=== PATIENT | male | born 1955 | race Caucasian/White ===

== ENCOUNTER 2017-08-23 22:40 | Emergency (ER) | payer MEDICAID, OTHER ==
[~2017-08-23] VITALS: Ht 170.2 cm; Wt 82.0 kg
[~2017-08-23 22:40] MED LIST: ALBU90AE PO; ALFU10TA10 PO; ATOR20TA66 PO; BUDE10.2 INH; CALC355O3 PO; CLOP75TA33 PO; ISOS5TAB3 PO; LOSA25TA21 PO; LYR75C PO; METO-395 PO; NITR0.4T48 SL; OMEP20TA5 PO; SERT50TA10 PO; SPIIN INH; VALP250C3 PO
[2017-08-23] MEDS ORDERED: normal saline 1000ML IV soln IVB ONE (22:55)
[2017-08-23 23:10] LABS: BASOPHILS # (AUTO) 0.1 X10'3 (0-0.2); BASOPHILS % (AUTO) 1.2 % (0-1); EOSINOPHILS # (AUTO) 0.3 X10'3 (0-0.9); EOSINOPHILS % (AUTO) 4.2 % (0-6); HEMATOCRIT 41.5 % (42.0-52.0); HEMOGLOBIN 14.3 g/dl (14.0-17.9); LYMPHOCYTES # (AUTO) 2.3 X10'3 (1.1-4.8); MEAN CORPUSCULAR HEMOGLOBIN 32.5 PG (27.0-31.0); MEAN CORPUSCULAR HGB CONC 34.5 % (33.0-36.5); MEAN CORPUSCULAR VOLUME 94.1 FL (78-98); MEAN PLATELET VOLUME 6.9 FL (7.4-10.4); MONOCYTES # (AUTO) 0.4 X10'3 (0-0.9); MONOCYTES % (AUTO) 5.1 % (2-12); NEUTROPHILS # (AUTO) 4.8 X10'3 (1.8-7.7); NEUTROPHILS % (AUTO) 60.5 % (42-75); PLATELET COUNT 176 X10'3 (140-440); RED BLOOD COUNT 4.41 X10'6 (4.70-6.10); RED CELL DISTRIBUTION WIDTH 13.5 % (11.5-14.5); WHITE BLOOD COUNT 7.9 X10'3 (4.5-11.0)
[2017-08-23 23:19] LABS: INR 2.2 INR; PARTIAL THROMBOPLASTIN TIME 33 SECONDS (22-32); PROTHROMBIN TIME 22.1 SECONDS (9.0-12.0)
[2017-08-23 23:39] LABS: ALANINE AMINOTRANSFERASE 29 U/L (12-78); ALBUMIN 3.8 G/DL (3.4-5.0); ALBUMIN/GLOBULIN RATIO 1.2 (1.1-1.5); ALKALINE PHOSPHATASE 80 IU/L (46-116); ANION GAP 10 (8-16); ASPARTATE AMINO TRANSFERASE 27 U/L (10-37); BILIRUBIN,TOTAL 0.2 MG/DL (0.1-1.0); BLOOD UREA NITROGEN 21 MG/DL (7-18); BUN/CREATININE RATIO 14.8 (5.4-32.0); CALCIUM 8.8 MG/DL (8.5-10.1); CHLORIDE 106 MMOL/L (99-107); CREATINE KINASE 149 U/L (39-308); CREATININE 1.42 MG/DL (0.60-1.10); GLUCOSE 97 MG/DL (70-104); MAGNESIUM 2.1 MG/DL (1.5-2.4); POTASSIUM 4.2 MMOL/L (3.5-5.1); SODIUM 142 MMOL/L (135-145); TOTAL CARBON DIOXIDE 25.6 MMOL/L (24-32); eGFR 51 ML/MIN
[2017-08-23 23:40] LABS: ACETAMINOPHEN < 2.0 UG/ML (10-30)
[2017-08-23 23:58] VITALS: BP 112/64
== END 2017-08-24 00:05 | disposition home or self-care (01) ==
LOC: ER 22:40
DX: S00.03XA Contusion of scalp, initial encounter (principal); I25.10 Atherosclerotic heart disease of native coronary artery without angina pectoris; Z86.73 Personal history of transient ischemic attack (TIA), and cerebral infarction without residual deficits; Z95.0 Presence of cardiac pacemaker; Z95.1 Presence of aortocoronary bypass graft; Z79.899 Other long term (current) drug therapy; Y04.0XXA Assault by unarmed brawl or fight, initial encounter; Y93.89 Activity, other specified; Y92.89 Other specified places as the place of occurrence of the external cause; Y99.8 Other external cause status
CPT/HCPCS: 36415; 70450; 71045; 80053; 80329; 82140; 82550; 82948; 83735; 84484; 85025; 85610; 85730; 93005; 99285

== ENCOUNTER 2017-11-08 19:49 | Emergency (ER) | payer OTHER ==
[~2017-11-08] VITALS: Ht 165.1 cm; Wt 72.0 kg
[~2017-11-08 19:49] MED LIST changes: +LOSA25TA12 PO; -LOSA25TA21 PO
[2017-11-08 20:16] VITALS: BP 122/78
== END 2017-11-08 22:05 | disposition left against medical advice (07) ==
LOC: ER 19:49
DX: R53.1 Weakness (principal); Z53.21 Procedure and treatment not carried out due to patient leaving prior to being seen by health care provider